=== PATIENT | female | born 1995 | race Caucasian/White ===

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

== ENCOUNTER 2023-02-05 03:06 | Emergency (ER) | payer MEDICAID, OTHER ==
[~2023-02-05] VITALS: Ht 165.1 cm; Wt 61.0 kg
[~2023-02-05 03:06] MED LIST changes: -MAGN400T6 PO; +MGX400T PO; -OXYC-465 PO; +OXYC-556 PO; +PROM12.511 PO; -PROM12.59 PO; -TRAM50TA2 PO; +TRM50T PO
[2023-02-05 03:17] VITALS: BP 125/98
--- NOTE | 2023-02-05 03:21 | ED General ---
General Chief Complaint: Chest Pain Stated Complaint: PT FEELS FAINT,DONATED BLOOD YESTERDAY Source of Information: Patient, Family Exam Limitations: No Limitations History of Present Illness Date Seen by Provider: Feb 05, 2023 Time Seen by Provider: 03:12 Initial Comments But -rkdy-fyw female presents emerged department today for palpitations, tingling around her mouth in her hands and tremor. Symptoms started about 30 minutes prior to arrival. She does have a history of anxiety but denies history of panic attacks. She started to get worried because she thought she was having a "plasma reaction." She donated plasma the other day and thought she was having some kind of reaction to this. She denies any fevers or chills. No chest pain. No shortness of breath. Does feel like she cannot catch a deep breath. No abdominal pain or change in bowel or bladder habits. No chance of . All other systems reviewed and negative except documented per HPI. Voice recognition software was used to help create this chart Allergies and Home Medications Allergies Coded Allergies: petrolatum,white (Unverified Allergy, Mild, Rash, 03/19/16) Patient Home Medication List Home Medication List Reviewed: Yes Cefdinir (Cefdinir) 300 Mg Capsule, 300 MG PO BID Prescribed by: CHRIS REESE on 12/24/16 1635 Diclofenac Sodium (Diclofenac Sodium) 50 Mg Tablet.dr, 50 MG PO Q6H PRN for PAIN Prescribed by: CHRIS REESE on 12/24/16 1635 Ondansetron (Ondansetron Odt) 8 Mg Tab.rapdis, 8 MG PO Q6H PRN for NAUSEA Prescribed by: KRISTEN QUINTANA on 10/31/16 231 Promethazine HCl (Promethazine HCl) 12.5 Mg Tablet, 12.5 MG PO Q6H PRN for NAUSEA/VOMITING Prescribed by: SUSAN COTTO on 11/02/16 225 Tramadol HCl (Tramadol HCl) 50 Mg Tablet, 50 MG PO Q6H PRN for PAIN Prescribed by: KRISTEN QUINTANA on 10/31/16 231 Review of Systems Review of Systems Constitutional: see HPI Past Ufkmwte-Snxmac-Eedfhx Hx Patient Social History Tobacco Use?: No Use of E-Cig and/or Vaping dev: No Substance use?: No Alcohol Use?: No Immunizations Up To Date Tetanus Booster (TDap): Less than 5yrs Seasonal Allergies Seasonal Allergies: Yes Past Medical History Surgeries: Yes (WISDOM TEETH, L ANKLE) Adenoidectomy, Orthopedic, Tonsillectomy Respiratory: Yes (CHILDHOOD ASTHMA) Asthma Cardiac: No Neurological: No Reproductive Disorders: No Sexually Transmitted Disease: No HIV/AIDS: No Bladder Infection Gastrointestinal: No Musculoskeletal: No Endocrine: No Cancer: No Psychosocial: Yes Anxiety, Depression Integumentary: No Blood Disorders: No Adverse Reaction/Blood Tranf: No Family Medical History Adopted Diabetes mellitus (Runs in biological family) Drug abuse (Biological mother) FH: breast cancer (Female side of family. Patient is adopted) FH: mental illness (Biological mother) FHx: heart disease (biological grandmother) No Pertinent Family Hx Physical Exam Vital Signs Capillary Refill : Height, Weight, BMI Height: 5'6.00" Weight: 125lbs. 10.0oz. [id number]; 14.06 BMI Method:Stated General Appearance: No Apparent Distress, WD/WN, Other (tremor b/l UE/LE) Eyes: Bilateral Eye Normal Inspection, Bilateral Eye PERRL, Bilateral Eye EOMI HEENT: PERRL/EOMI, TMs Normal, Normal ENT Inspection, Pharynx Normal Neck: Full Range of Motion, Normal Inspection, Non Tender, Supple Respiratory: Chest Non Tender, Lungs Clear, Normal Breath Sounds, No Accessory Muscle Use, No Respiratory Distress Cardiovascular: Regular Rate, Rhythm, No Murmur, Normal Peripheral Pulses Gastrointestinal: Normal Bowel Sounds, Non Tender, Soft Extremity: Normal Capillary Refill, Normal Inspection, Normal Range of Motion, Non Tender, No Calf Tenderness Neurologic/Psychiatric: Alert, Oriented x3, No Motor/Sensory Deficits Skin: Normal Color, Warm/Dry Procedures/Interventions Suture Size: 5-0 Progress/Results/Core Measures Suspected Sepsis SIRS Temperature: Pulse: Respiratory Rate: Blood Pressure / Mean: Results/Orders My Orders Orders - CASSANDRA DEVLIN DO Ekg Tracing (02/05/23 03:19) Vital Signs/I&O Capillary Refill : ECG Comment Sinus rhythm at 91 bpm. Normal intervals. Normal axis. No ST or T wave abnormalities. No ectopy. No STEMI. Departure Communication (Admissions) Patient is hemodynamically stable with no red flag symptoms. She is hyperventilating on exam and has perioral tingling bilateral hand tingling in his upper and lower extremity tremors. She is also experiencing palpitations. She has some mild tachycardia. No stigmata of pulmonary embolus and negative PERC criteria. No evidence for ACS. EKG is nonischemic with sinus rhythm. Evidence for dysrhythmia. She is discharged home with supportive care and hydroxyzine as needed. She does have Klonopin at home that she can take as well. Impression Primary Impression: Anxiety Departure-Patient Inst. Referrals: GEORGIA BRUCE DO (PCP) Primary Care Physician BENTLEY TORRES (Family) Primary Care Physician Patient Instructions: Anxiety, Adult ED Add. Discharge Instructions: Use hydroxyzine as needed for anxiety. Resume home medications as needed. Follow-up with your primary doctor for any nonemergent needs. Return to the emergency department for any severe concerns. All discharge instructions reviewed with patient and/or family. Voiced understanding. Scripts Hydroxyzine HCl (Hydroxyzine HCl) 50 Mg Tablet 50 MG PO TID for an for 5 Days, #15 TAB Prov: CASSANDRA DEVLIN DO 02/05/23 CASSANDRA DEVLIN DO Feb 05, 2023 03:20
[2023-02-05] MEDS ORDERED: HYDR50TA76 PO (03:23)
[2023-02-05] MEDS ORDERED: hydrOXYzine (VISTARIL/ATARAX) 25 MG capsule/tablet PO ONE (03:30)
== END 2023-02-05 03:32 | disposition home or self-care (01) ==
LOC: EDUNIT# 03:06 → ER 03:10
DX: F41.9 Anxiety disorder, unspecified (principal); I49.9 Cardiac arrhythmia, unspecified
CPT/HCPCS: 93005

== ENCOUNTER 2023-03-19 00:40 | Emergency (ER) | payer OTHER ==
[~2023-03-19] VITALS: Ht 165.1 cm; Wt 58.9 kg
[~2023-03-19 00:40] MED LIST changes: +HYDR50TA76 PO
[2023-03-19 00:43] VITALS: BP 128/83
--- NOTE | 2023-03-19 00:43 | ED General ---
General Stated Complaint: ALLERGIC RXN History of Present Illness Date Seen by Provider: Mar 19, 2023 Time Seen by Provider: 00:43 Initial Comments 27-year-old female in to be evaluated for allergic reaction. Patient reports that a couple hours ago she had some new eyelashes put on. That she has a history of panic attacks and her heart started racing and she been out of being tight in her chest. She used her nebulizers with no relief. She did take an hydroxyzine with some minimal relief. She does not have any rash, swelling around her eyelids. Allergies and Home Medications Allergies Coded Allergies: garrick,white (Unverified Allergy, Mild, Rash, 03/19/16) Patient Home Medication List Home Medication List Reviewed: Yes Cefdinir (Cefdinir) 300 Mg Capsule, 300 MG PO BID Prescribed by: CHRIS REESE on 12/24/16 1635 Diclofenac Sodium (Diclofenac Sodium) 50 Mg Tablet.dr, 50 MG PO Q6H PRN for PAIN Prescribed by: CHRIS REESE on 12/24/16 1635 Hydroxyzine HCl (Hydroxyzine HCl) 50 Mg Tablet, 50 MG PO TID Prescribed by: CASSANDRA DEVLIN MD on 02/05/23 0323 Ondansetron (Ondansetron Odt) 8 Mg Tab.rapdis, 8 MG PO Q6H PRN for NAUSEA Prescribed by: KRISTEN QUINTANA on 10/31/16 231 Promethazine HCl (Promethazine HCl) 12.5 Mg Tablet, 12.5 MG PO Q6H PRN for NAUSEA/VOMITING Prescribed by: SUSAN COTTO on 11/02/16 2250 Tramadol HCl (Tramadol HCl) 50 Mg Tablet, 50 MG PO Q6H PRN for PAIN Prescribed by: KRISTEN QUINTANA on 10/31/16 231 Review of Systems Review of Systems Constitutional: see HPI EENTM: see HPI Respiratory: see HPI Cardiovascular: see HPI Gastrointestinal: no symptoms reported Genitourinary: no symptoms reported Musculoskeletal: no symptoms reported Skin: no symptoms reported Psychiatric/Neurological: No Symptoms Reported Hematologic/Lymphatic: No Symptoms Reported Past Nhiaelu-Feltgj-Twueak Hx Immunizations Up To Date Tetanus Booster (TDap): Less than 5yrs Seasonal Allergies Seasonal Allergies: Yes Past Medical History Surgeries: Yes (WISDOM TEETH, L ANKLE) Adenoidectomy, Orthopedic, Tonsillectomy Respiratory: Yes (CHILDHOOD ASTHMA) Asthma Cardiac: No Neurological: No Reproductive Disorders: No Sexually Transmitted Disease: No HIV/AIDS: No Bladder Infection Gastrointestinal: No Musculoskeletal: No Endocrine: No Cancer: No Psychosocial: Yes Anxiety, Depression Integumentary: No Blood Disorders: No Adverse Reaction/Blood Tranf: No Family Medical History Adopted Diabetes mellitus (Runs in biological family) Drug abuse (Biological mother) FH: breast cancer (Female side of family. Patient is adopted) FH: mental illness (Biological mother) FHx: heart disease (biological grandmother) No Pertinent Family Hx Physical Exam Vital Signs Capillary Refill : Height, Weight, BMI Height: 5'6.00" Weight: 125lbs. 10.0oz. 56.744852po; 22.00 BMI Method:Stated General Appearance: No Apparent Distress, WD/WN Respiratory: Lungs Clear, Normal Breath Sounds Cardiovascular: Regular Rate, Rhythm, Normal Peripheral Pulses Gastrointestinal: Non Tender, Soft Extremity: Normal Capillary Refill, Normal Inspection, Normal Range of Motion Neurologic/Psychiatric: Alert, No Motor/Sensory Deficits, Other (anxious ) Skin: Normal Color, Warm/Dry Procedures/Interventions Suture Size: 5-0 Progress/Results/Core Measures Suspected Sepsis SIRS Temperature: Pulse: Respiratory Rate: Laboratory Tests 03/19/23 01:14: White Blood Count 8.2 Blood Pressure / Mean: Laboratory Tests 03/19/23 01:14: Creatinine 0.78, Platelet Count 214, Total Bilirubin 0.5 Results/Orders Lab Results Laboratory Tests Test 03/19/23 01:14 Range/Units White Blood Count 8.2 4.3-11.0 10^3/uL Red Blood Count 4.38 3.80-5.11 10^6/uL Hemoglobin 13.2 11.5-16.0 g/dL Hematocrit 39 35-52 % Mean Corpuscular Volume 88 80-99 fL Mean Corpuscular Hemoglobin 30 25-34 pg Mean Corpuscular Hemoglobin Concent 34 32-36 g/dL Red Cell Distribution Width 12.2 10.0-14.5 % Platelet Count 214 130-400 10^3/uL Mean Platelet Volume 10.1 9.0-12.2 fL Immature Granulocyte % (Auto) 0 % Neutrophils (%) (Auto) 63 42-75 % Lymphocytes (%) (Auto) 26 12-44 % Monocytes (%) (Auto) 8 0-12 % Eosinophils (%) (Auto) 2 0-10 % Basophils (%) (Auto) 1 0-10 % Neutrophils # (Auto) 5.2 1.8-7.8 10^3/uL Lymphocytes # (Auto) 2.2 1.0-4.0 10^3/uL Monocytes # (Auto) 0.7 0.0-1.0 10^3/uL Eosinophils # (Auto) 0.2 0.0-0.3 10^3/uL Basophils # (Auto) 0.0 0.0-0.1 10^3/uL Immature Granulocyte # (Auto) 0.0 0.0-0.1 10^3/uL Sodium Level 142 135-145 MMOL/L Potassium Level 3.2 L 3.6-5.0 MMOL/L Chloride Level 107 98-107 MMOL/L Carbon Dioxide Level 26 21-32 MMOL/L Anion Gap 9 5-14 MMOL/L Blood Urea Nitrogen 8 7-18 MG/DL Creatinine 0.78 0.60-1.30 MG/DL Estimat Glomerular Filtration Rate 108 BUN/Creatinine Ratio 10 Glucose Level 104 70-105 MG/DL Calcium Level 10.0 8.5-10.1 MG/DL Corrected Calcium 8.5-10.1 MG/DL Total Bilirubin 0.5 0.1-1.0 MG/DL Aspartate Amino Transf (AST/SGOT) 17 5-34 U/L Alanine Aminotransferase (ALT/SGPT) 11 0-55 U/L Alkaline Phosphatase 63 40-136 U/L Troponin I < 0.028 <0.028 NG/ML C-Reactive Protein High Sensitivity 0.04 0.00-0.50 MG/DL Total Protein 7.6 6.4-8.2 GM/DL Albumin 4.6 H 3.2-4.5 GM/DL My Orders Orders - JEONG,STEVE L DO Diphenhydramine Injection (Benadryl Inje (03/19/23 00:47) Cbc With Automated Diff (03/19/23 01:03) Comprehensive Metabolic Panel (03/19/23 01:03) Hs C Reactive Protein (03/19/23 01:03) Troponin I Katie (03/19/23 01:03) Ondansetron Injection (Zofran Injectio (03/19/23 01:15) Ns Iv 1000 Ml (Sodium Chloride 0.9%) (03/19/23 01:03) Ekg Tracing (03/19/23 01:03) Monitor-Rhythm Ecg Trace Only (03/19/23 01:03) Chest 1 View, Ap/Pa Only (03/19/23 01:05) Medications Given in ED Current Medications Medications Dose Ordered Sig/Justo Route Start Time Stop Time Status Last Admin Dose Admin Ondansetron HCl 4 mg ONCE ONCE IVP 03/19/23 01:15 03/19/23 01:16 DC 03/19/23 01:12 4 MG Vital Signs/I&O Capillary Refill : Progress Note : Progress Note Diagnostic studies were ordered reviewed and interpreted by me. Patient labs show no significant acute concerning findings. Chest x-ray was reviewed which shows no acute findings. Final interpretation will be per radiology report. Patient is EKG showed no concerning changes. Patient much better following the Benadryl and is now resting comfortably and going to sleep. I suspect this likely much more anxiety than an actual allergic skin since there was no rash, swelling or or noticeable reaction near her eyelids. Patient was stable and discharged home patient should return to the ER as needed ECG Initial ECG Impression Date: Mar 19, 2023 Initial ECG Impression Time: 01:11 Initial ECG Rate: 87 Initial ECG Rhythm: Normal Sinus Initial ECG Impression: Nonspecific Changes Comment no acute st changes or elevation Departure Impression Primary Impression: Generalized anxiety disorder with panic attacks Disposition: 01 HOME, SELF-CARE Condition: Stable Departure-Patient Inst. Referrals: NO,LOCAL PHYSICIAN (PCP/Family) Primary Care Physician Patient Instructions: Generalized Anxiety Disorder (DC), Panic Attack ED Add. Discharge Instructions: Return to ER with any concerns. Follow-up with your primary care provider for help as needed or if your symptoms become more recurrent for further management options. STEVE JEONG DO Mar 19, 2023 00:43
[2023-03-19] MEDS ORDERED: diphenhydrAMINE INJ 50 MG/ML VIAL IM STA (00:47)
[2023-03-19] MEDS ORDERED: NS IV 1000 ML 1,000 ML IV STA (01:03)
[2023-03-19] MEDS ORDERED: ONDANSETRON 4 MG/2 ML (SDV) Z0FRAN IVP ONE (01:15)
[2023-03-19 01:21] LABS: BASOPHILS % (AUTO) 1 % (0-10); EOSINOPHILS # (AUTO) 0.2 10^3/uL (0.0-0.3); EOSINOPHILS % (AUTO) 2 % (0-10); HEMATOCRIT 39 % (35-52); HEMOGLOBIN 13.2 g/dL (11.5-16.0); LYMPHOCYTES # (AUTO) 2.2 10^3/uL (1.0-4.0); LYMPHOCYTES % (AUTO) 26 % (12-44); MEAN CORPUSCULAR HEMOGLOBIN 30 pg (25-34); MEAN CORPUSCULAR HGB CONC 34 g/dL (32-36); MEAN CORPUSCULAR VOLUME 88 fL (80-99); MEAN PLATELET VOLUME 10.1 fL (9.0-12.2); MONOCYTES # (AUTO) 0.7 10^3/uL (0.0-1.0); MONOCYTES % (AUTO) 8 % (0-12); NEUTROPHILS # (AUTO) 5.2 10^3/uL (1.8-7.8); NEUTROPHILS % (AUTO) 63 % (42-75); PLATELET COUNT 214 10^3/uL (130-400); WHITE BLOOD COUNT 8.2 10^3/uL (4.3-11.0)
[2023-03-19 01:39] LABS: ALBUMIN 4.6 GM/DL (3.2-4.5); CHLORIDE 107 MMOL/L (98-107); POTASSIUM 3.2 MMOL/L (3.6-5.0); SODIUM 142 MMOL/L (135-145)
[2023-03-19 01:41] LABS: GLUCOSE 104 MG/DL (70-105)
[2023-03-19 01:42] LABS: TOTAL PROTEIN 7.6 GM/DL (6.4-8.2)
[2023-03-19 01:43] LABS: BILIRUBIN,TOTAL 0.5 MG/DL (0.1-1.0); CARBON DIOXIDE 26 MMOL/L (21-32)
[2023-03-19 01:45] LABS: ALKALINE PHOSPHATASE 63 U/L (40-136); CREATININE SERUM 0.78 MG/DL (0.60-1.30); GFR ESTIMATED 108
[2023-03-19 01:46] LABS: BUN/CREATININE RATIO 10
[2023-03-19 01:48] LABS: ALANINE AMINOTRANSFERASE 11 U/L (0-55)
--- NOTE | 2023-03-19 07:38 | Diagnostic Imaging Report ---
INDICATION: Chest pain COMPARISON: None available TECHNIQUE: Single radiograph of the chest dated 03/19/2023. FINDINGS: The cardiac silhouette is within normal limits in size. No significant pulmonary vascular congestion. The lungs are clear. No pleural effusion. No pneumothorax. No acute osseous abnormality. IMPRESSION: No acute cardiopulmonary abnormality. Dictated by: Dictated on workstation # [id number]
== END 2023-03-19 02:13 | disposition home or self-care (01) ==
LOC: EDUNIT# 00:40 → ER 00:42
DX: F41.1 Generalized anxiety disorder (principal); F41.0 Panic disorder [episodic paroxysmal anxiety]; Z28.310 Unvaccinated for COVID-19
CPT/HCPCS: 36415; 71045; 80053; 84484; 85025; 86141; 93005; 93041

== ENCOUNTER 2023-04-19 17:27 | Emergency (ER) | payer OTHER ==
[~2023-04-19] VITALS: Ht 165.1 cm; Wt 58.0 kg
--- NOTE | 2023-04-19 18:11 | ED Cough/URI ---
General Chief Complaint: COVID19 Suspect/Confirmed Stated Complaint: FEVER CHILLS, FATIGUE, CONGESTION Nursing Triage Note: PT AMB TO RM 10 WITH CC OF CHILLS, BODY ACHES, SORE THROAT AND CHEST DISCOMFORT. PT STATES THAT SHE WAS EXPOSED TO COVID AT WORK 4 DAYS AGO. Source: patient Exam Limitations: no limitations History of Present Illness Date Seen by Provider: Apr 19, 2023 Time Seen by Provider: 18:07 Initial Comments Patient is a 27-year-old female who presents to the ED for body aches, chills, weakness fatigue sore throat and chest discomfort. Symptoms started 3 to 4 days ago with nasal congestion. Symptoms became worse last night. She works at [employer]. Exposure to COVID. Similar coworkers with similar symptoms. She reports some pain in the chest but denies of any shortness of breath or cough. She reports diffuse body pains. Feels anxious. Denies any nausea vomiting or diarrhea. Patient has been taken Tylenol without much improvement. She felt nauseous at home and did take Zofran. Denies of any abdominal pain, dysuria, hematuria, increasing frequency, vaginal bleeding or vaginal discharge. Allergies and Home Medications Allergies Coded Allergies: petrolatum,white (Unverified Allergy, Mild, Rash, 03/19/16) Patient Home Medication List Home Medication List Reviewed: Yes Cefdinir (Cefdinir) 300 Mg Capsule, 300 MG PO BID Prescribed by: CHRIS REESE on 12/24/16 1635 Diclofenac Sodium (Diclofenac Sodium) 50 Mg Tablet.dr, 50 MG PO Q6H PRN for PAIN Prescribed by: CHRIS REESE on 12/24/16 1635 Hydroxyzine HCl (Hydroxyzine HCl) 50 Mg Tablet, 50 MG PO TID Prescribed by: CASSANDRA DEVLIN MD on 02/05/23 0323 Ondansetron (Ondansetron Odt) 8 Mg Tab.rapdis, 8 MG PO Q6H PRN for NAUSEA Prescribed by: KRISTEN QUINTANA on 10/31/16 2317 Promethazine HCl (Promethazine HCl) 12.5 Mg Tablet, 12.5 MG PO Q6H PRN for NAUSEA/VOMITING Prescribed by: SUSAN COTTO on 11/02/16 2250 Tramadol HCl (Tramadol HCl) 50 Mg Tablet, 50 MG PO Q6H PRN for PAIN Prescribed by: KRISTEN QUINTANA on 10/31/16 6364 Review of Systems Review of Systems Constitutional: chills; No diaphoresis; malaise, weakness EENTM: No ear pain, No blurred vision, No double vision Respiratory: No cough, No dyspnea on exertion Gastrointestinal: No abdominal pain, No diarrhea; nausea; No vomiting Genitourinary: No decreased output, No discharge Musculoskeletal: No back pain, No joint pain Skin: No change in color, No change in hair/nails Psychiatric/Neurological: Denies Headache, Denies Numbness All Other Systems Reviewed Negative Unless Noted: Yes Past Wvrzawc-Ygmrxc-Flkhmv Hx Patient Social History Tobacco Use?: Yes Use of E-Cig and/or Vaping dev: Yes E-Cig or Vaping type used: Nicotine Substance use?: No Alcohol Use?: No Immunizations Up To Date Tetanus Booster (TDap): Less than 5yrs Seasonal Allergies Seasonal Allergies: Yes Past Medical History Surgeries: Yes (WISDOM TEETH, L ANKLE) Adenoidectomy, Orthopedic, Tonsillectomy Respiratory: Yes (CHILDHOOD ASTHMA) Asthma Cardiac: No Neurological: No Reproductive Disorders: No Sexually Transmitted Disease: No HIV/AIDS: No Bladder Infection Gastrointestinal: No Musculoskeletal: No Endocrine: No Cancer: No Psychosocial: Yes Anxiety, Depression Integumentary: No Blood Disorders: No Adverse Reaction/Blood Tranf: No Family Medical History Adopted Diabetes mellitus (Runs in biological family) Drug abuse (Biological mother) FH: breast cancer (Female side of family. Patient is adopted) FH: mental illness (Biological mother) FHx: heart disease (biological grandmother) No Pertinent Family Hx Physical Exam Vital Signs - First Documented 04/19/23 17:40 Temp 36.9 Pulse 83 B/P (MAP) 114/76 (89) Pulse Ox 100 O2 Delivery Room Air Capillary Refill : Height: 5'6.00" Weight: 125lbs. 10.0oz. 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 nml as tested, no motor/sensory deficits, alert, normal mood/affect, oriented x 3 Skin: normal color, warm/dry Procedures/Interventions Suture Size: 5-0 Progress/Results/Core Measures Suspected Sepsis SIRS Temperature: Pulse: 83 Respiratory Rate: Blood Pressure 114 /76 Mean: 89 Results/Orders Lab Results Laboratory Tests Test 04/19/23 17:43 Range/Units Influenza Type A (RT-PCR) Not Detected Not Detecte Influenza Type B (RT-PCR) Not Detected Not Detecte SARS-CoV-2 RNA (RT-PCR) Not Detected Not Detecte My Orders Orders - RUMA DELGADO Covid 19 Inhouse Test (04/19/23 17:31) Influenza A And B By Pcr (04/19/23 17:31) Vital Signs/I&O 04/19/23 17:40 Temp 36.9 Pulse 83 B/P (MAP) 114/76 (89) Pulse Ox 100 O2 Delivery Room Air Capillary Refill : Blood Pressure Mean: 89 Departure Communication (PCP) Reviewed previous ER visits, H&P, lab testing. History of anxiety. Differential diagnosis viral syndrome, anxiety, pneumonia, sinusitis. Patient vital signs stable. She is not tachycardic hypoxic. Flulike symptoms over the past 4 days started nasal congestion. Chest discomfort, body pains chills nasal congestion mild sore throat nausea. No vomiting or diarrhea. No current chest pain, cough or shortness of breath. No known cardiac history. Clinically does not appear cardiac. Appears to be more URI symptoms. COVID influenza was ord ered which were negative. She refused anything for pain. She does appear anxious. Discussed conservative measures at this time. Tylenol ibuprofen. Recommend staying hydrated. She does work night shifts and provided work note for a few days. If any worsening symptoms return back to ED for further evaluation. No urinary symptoms suggesting urinary. Oropharynx without erythem a, swelling, exudate. I TMs clear. Impression Primary Impression: URI (upper respiratory infection) Disposition: 01 HOME, SELF-CARE Condition: Stable Departure-Patient Inst. Decision time for Depature: 18:26 Referrals: [facility] [place] NO,LOCAL PHYSICIAN (PCP) Primary Care Physician Patient Instructions: Viral Syndrome (DC) Add. Discharge Instructions: Tylenol or ibuprofen at home for body aches chills, fever. Recommend staying hydrated adequate sleep. If any worsening symptoms return back to ED.. All discharge instructions reviewed with patient and/or family. Voiced understanding. Work/School Note: Work Release Form Date Seen in the Emergency Department: Apr 19, 2023 Return to Work: Apr 21, 2023 RUMA DELGADO Apr 19, 2023 18:11
[2023-04-19 18:28] VITALS: BP 114/76
== END 2023-04-19 18:30 | disposition home or self-care (01) ==
LOC: EDUNIT# 17:27 → ER 17:30
DX: J06.9 Acute upper respiratory infection, unspecified (principal); F17.290 Nicotine dependence, other tobacco product, uncomplicated; Z20.822 Contact with and (suspected) exposure to COVID-19
CPT/HCPCS: 87636; 99283

== ENCOUNTER 2023-04-19 20:41 | Emergency (ER) | payer OTHER ==
[~2023-04-19] VITALS: Ht 165.1 cm; Wt 58.0 kg
[2023-04-19 20:50] VITALS: BP 128/90
--- NOTE | 2023-04-19 20:59 | ED Cardiac General ---
History of Present Illness General Stated Complaint: CHEST PAIN LT SHOULDER PAIN Source: patient Exam Limitations: no limitations History of Present Illness Date Seen by Provider: Apr 19, 2023 Time Seen by Provider: 20:50 Initial Comments 27-year-old female presents to the emergency department today for sharp stabbing chest pain in her left anterior chest wall. She states they are intermittently in her left parasternal region or left mid clavicular line region as she is pointing. They are fleeting, sharp stabbing pains. The been present for about a month and she states she is overall felt "like shit" since that time. She was started on a new anxiety medicine at that time. She was seen in the emergency department this morning for chills headache sore throat and cough as well as some left shoulder pain. She was tested for COVID. Notably record review shows old provider at that time that her symptoms that started today. Her COVID test was negative. All other systems reviewed and negative except documented per HPI. Voice recognition software was used to help create this chart Allergies and Home Medications Allergies Coded Allergies: deanna mccauley (Unverified Allergy, Mild, Rash, 03/19/16) Patient Home Medication List Home Medication List Reviewed: Yes Cefdinir (Cefdinir) 300 Mg Capsule, 300 MG PO BID Prescribed by: CHRIS REESE on 12/24/16 1635 Diclofenac Sodium (Diclofenac Sodium) 50 Mg Tablet.dr, 50 MG PO Q6H PRN for PAIN Prescribed by: CHRIS REESE on 12/24/16 1635 Hydroxyzine HCl (Hydroxyzine HCl) 50 Mg Tablet, 50 MG PO TID Prescribed by: CASSANDRA DEVLIN MD on 02/05/23 0323 Ondansetron (Ondansetron Odt) 8 Mg Tab.rapdis, 8 MG PO Q6H PRN for NAUSEA Prescribed by: KRISTEN QUINTANA on 10/31/16 231 Promethazine HCl (Promethazine HCl) 12.5 Mg Tablet, 12.5 MG PO Q6H PRN for NAUSEA/VOMITING Prescribed by: SUSAN COTTO on 11/02/16 225 Tramadol HCl (Tramadol HCl) 50 Mg Tablet, 50 MG PO Q6H PRN for PAIN Prescribed by: KRISTEN QUINTANA on 10/31/162316 Review of Systems Review of Systems Constitutional: see HPI Past Anafarp-Afylgz-Virshg Hx Patient Social History Tobacco Use?: No Use of E-Cig and/or Vaping dev: No Substance use?: No Alcohol Use?: No Immunizations Up To Date Tetanus Booster (TDap): Less than 5yrs Seasonal Allergies Seasonal Allergies: Yes Past Medical History Surgeries: Yes (WISDOM TEETH, L ANKLE) Adenoidectomy, Orthopedic, Tonsillectomy Respiratory: Yes (CHILDHOOD ASTHMA) Asthma Cardiac: No Neurological: No Reproductive Disorders: No Sexually Transmitted Disease: No HIV/AIDS: No Bladder Infection Gastrointestinal: No Musculoskeletal: No Endocrine: No Cancer: No Psychosocial: Yes Anxiety, Depression Integumentary: No Blood Disorders: No Adverse Reaction/Blood Tranf: No Family Medical History Adopted Diabetes mellitus (Runs in biological family) Drug abuse (Biological mother) FH: breast cancer (Female side of family. Patient is adopted) FH: mental illness (Biological mother) FHx: heart disease (biological grandmother) No Pertinent Family Hx Physical Exam Vital Signs Vital Signs - First Documented 04/19/23 20:50 Temp 36.5 Pulse 111 Resp 16 B/P (MAP) 128/90 (103) Capillary Refill : Height, Weight, BMI Height: 5'6.00" Weight: 125lbs. 10.0oz. 56.428933nd; 21.00 BMI Method:Stated General Appearance: No Apparent Distress, WD/WN, Anxious HEENT: PERRL/EOMI, Normal ENT Inspection, Pharynx Normal Neck: Normal Inspection, Non Tender, Supple Respiratory: Chest Non Tender, Lungs Clear, Normal Breath Sounds, No Accessory Muscle Use, No Respiratory Distress Cardiovascular: Regular Rate, Rhythm, No Murmur, Normal Peripheral Pulses Gastrointestinal: Normal Bowel Sounds, No Organomegaly, Non Tender, Soft Extremity: Normal Capillary Refill, Normal Inspection, Non Tender Neurologic/Psychiatric: Alert, Oriented x3 Skin: Normal Color, Warm/Dry Procedures/Interventions Suture Size: 5-0 Progress/Results/Core Measures Results/Orders My Orders Orders - CLAUSCASSANDRA BASS DO Chest 1 View, Ap/Pa Only (04/19/23 20:56) Ekg Tracing (04/19/23 20:56) Vital Signs/I&O 04/19/23 20:50 Temp 36.5 Pulse 111 Resp 16 B/P (MAP) 128/90 (103) Comment Sinus rhythm, rate 93 bpm. Normal intervals. Normal axis. No ST or T wave abnormalities. No ectopy. No STEMI. Departure Communication (Admissions) Patient is hemodynamically stable. She does seem quite anxious about her health overall. She has initial tachycardia, improved when myself and the nurse leave the room with heart rate dropping down to the mid 80s. 105 on the right in the room. Blood pressures are stable. Her lungs are clear. Chest x-ray is negative on my independent review. No acute cardiopulmonary or bony abnormality. EKG is nonischemic, sinus rhythm, independent review. She tested negative for COVID earlier today. She be discharged home in stable condition with supportive care. Impression Primary Impression: Anxiety Disposition: HOME, SELF-CARE Condition: Stable Departure-Patient Inst. Referrals: NO,LOCAL PHYSICIAN (PCP/Family) Primary Care Physician Patient Instructions: Chest Pain That Is Not Caused by the Heart (DC) Add. Discharge Instructions: As discussed no emergent medical conditions are identified for your symptoms today. There is no indication that this is coming from your heart or your lungs at this time. Your vital signs are reassuring. I recommend you follow-up with your primary doctor for further evaluation and treatment recommendations should your symptoms persist. Follow-up in the emergency department for any severe concerns. CASSANDRA DEVLIN DO Apr 19, 2023 20:59
--- NOTE | 2023-04-19 21:18 | Diagnostic Imaging Report ---
INDICATION: Intermittent R chest pain. COMPARISON: 03/19/2023. FINDINGS: Single frontal view of the chest demonstrates normal heart size and pulmonary vascularity. The lungs are well aerated and clear. No large pleural effusion or pneumothorax is seen. The visualized osseous structures show no acute abnormality. IMPRESSION: No acute cardiopulmonary process. Dictated by: Dictated on workstation # [id number]
== END 2023-04-19 21:33 | disposition home or self-care (01) ==
LOC: EDUNIT# 20:41 → ER 20:44
DX: F41.9 Anxiety disorder, unspecified (principal)
CPT/HCPCS: 71045

== ENCOUNTER 2023-05-22 21:34 | Emergency (ER) | payer OTHER ==
[~2023-05-22] VITALS: Ht 165.6 cm; Wt 58.8 kg
[2023-05-22] MEDS ORDERED: AMOXICILLIN/Clavulanate 875 MG TABLET PO STA (21:53)
[2023-05-22] MEDS ORDERED: AMOX1TAB12 PO (21:55)
--- NOTE | 2023-05-22 21:56 | ED EENT ---
History of Present Illness General Chief Complaint: Dental Problems/Pain Stated Complaint: LT SIDE MOUTH PAIN AND SWOLLEN, HEADACHE, FATIGUE Nursing Triage Note: Pt presents with c/o swelling in throat and jaw. She reports she noticed swelling x2 weeks ago, states she has a few cavities, she reports pain and swelling in jaw has worsened over the past 2 days. She states she feels fatigued, but has not been able to sleep due to pain. Source: patient Exam Limitations: no limitations (RUMA DELGADO) History of Present Illness Date Seen by Provider: May 22, 2023 Time Seen by Provider: 21:57 Initial Comments Patient is a 27-year-old female presents ED with bilateral lower dental pain and jaw pain for the past 2 weeks. She noted her jaws to be slightly puffier. Pain with eating. Has been taken Tylenol ibuprofen without much improvement pain worsening pain over the past 2 days. She states she does not feel well. She does have a known history of cavities to her lower molars. She has not been able to follow-up with a dentist. She reports a mild sore throat but denies of any difficulty breathing, neck swelling or redness, shortness of breath, chest pain, vomiting or diarrhea. She does report a headache. She is concern for dental infection. She has been using cool compresses without much improvement. (RUMA DELGADO) Allergies and Home Medications Allergies Coded Allergies: petrolatum,white (Unverified Allergy, Mild, Rash, 03/19/16) Patient Home Medication List Home Medication List Reviewed: Yes (RUMA DELGADO) Amoxicillin/Potassium Clav (Amox Tr-K Clv 875-125 mg Tab) 875 Mg-125 Mg Tablet, 1 EACH PO BID Prescribed by: CELINE SPENCER on 05/22/23 2155 Cefdinir (Cefdinir) 300 Mg Capsule, 300 MG PO BID Prescribed by: CHRIS REESE on 12/24/16 1635 Diclofenac Sodium (Diclofenac Sodium) 50 Mg Tablet.dr, 50 MG PO Q6H PRN for PAIN Prescribed by: CHRIS REESE on 12/24/16 1635 Hydroxyzine HCl (Hydroxyzine HCl) 50 Mg Tablet, 50 MG PO TID Prescribed by: CASSANDRA DEVLIN MD on 02/05/23 0323 Ondansetron (Ondansetron Odt) 8 Mg Tab.rapdis, 8 MG PO Q6H PRN for NAUSEA Prescribed by: KRISTEN QUINTANA on 10/31/162316 Promethazine HCl (Promethazine HCl) 12.5 Mg Tablet, 12.5 MG PO Q6H PRN for NAUSEA/VOMITING Prescribed by: SUSAN COTTO on 11/02/162249 Tramadol HCl (Tramadol HCl) 50 Mg Tablet, 50 MG PO Q6H PRN for PAIN Prescribed by: KRISTEN QUINTANA on 10/31/162316 Review of Systems Review of Systems Constitutional: No chills, No diaphoresis, No malaise, No weakness Eyes: Denies Blurred Vision, Denies Drainage, Denies Decreased Acuity Ears: Denies Dizziness, Denies Pain Nose: denies clots, denies congestion, denies epistaxis, denies pain, denies bloody discharge Mouth: denies clots, denies loose teeth; pain Throat: denies pain, denies discharge, denies neck stiffness, denies hoarse Respiratory: No cough, No dyspnea on exertion Cardiovascular: No chest pain, No edema Gastrointestinal: No abdominal pain, No diarrhea, No melena, No nausea, No vomiting Musculoskeletal: No back pain, No joint pain Skin: No change in color, No change in hair/nails (RUMA DELGADO) All Other Systems Reviewed Negative Unless Noted: Yes (RUMA DELGADO) Past Uhycuar-Jwhkik-Vjnuns Hx Immunizations Up To Date Tetanus Booster (TDap): Less than 5yrs Influenza Vaccine Up-to-Date: No; Not Current (RUMA DELGADO) Seasonal Allergies Seasonal Allergies: Yes (RUMA DELGADO) Past Medical History Surgeries: Yes (WISDOM TEETH, L ANKLE) Adenoidectomy, Orthopedic, Tonsillectomy Respiratory: Yes (CHILDHOOD ASTHMA) Asthma Cardiac: No Neurological: No Reproductive Disorders: No Sexually Transmitted Disease: No HIV/AIDS: No Bladder Infection Gastrointestinal: No Musculoskeletal: No Endocrine: No Cancer: No Psychosocial: Yes Anxiety, Depression Integumentary: No Blood Disorders: No Adverse Reaction/Blood Tranf: No (RUMA DELGADO) Family Medical History Adopted Diabetes mellitus (Runs in biological family) Drug abuse (Biological mother) FH: breast cancer (Female side of family. Patient is adopted) FH: mental illness (Biological mother) FHx: heart disease (biological grandmother) No Pertinent Family Hx (RUMA DELGADO) Physical Exam Vital Signs Vital Signs - First Documented 05/22/23 05/22/23 21:38 22:00 Temp 36.4 Pulse 72 Resp 16 B/P (MAP) 113/78 (90) Pulse Ox 99 O2 Delivery Room Air ([place] DO) Height, Weight, BMI Height: 5'6.00" Weight: 125lbs. 10.0oz. 56.179791bx; 21.00 BMI Method:Stated General Appearance: WD/WN, no apparent distress Eyes: bilateral eye normal inspection, bilateral eye PERRL, bilateral eye EOMI Ears: bilateral ear auricle normal, bilateral ear canal normal, bilateral ear TM normal, bilateral ear bleeding Nose: normal inspection Mouth/Throat: other (Bottom right and left lower molars with mild decay gum swelling. No obvious abscess. Oropharynx patent without erythema, swelling, exudate. Mild swelling to the left lower jaw. No parotid or submandibular tenderness) Neck: non-tender, full range of motion, supple, normal inspection, other (No stridor. 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 She has no parotid or submandibular tenderness.. Very minimal facial swelling. No erythema. Tolerating secretions. No evidence of Bg angina. Oropharynx patent without evidence of strep. Vital signs stable. Will discharge with Augmentin receive a dose here. Alternate Tylenol and ibuprofen. Follow-up your dentist for further evaluation. She has no other complaints such as chest pain, short of breath, vomiting, diarrhea or flulike symptoms. Patient appears anxious. Need to follow-up with your dentist for further evaluation. If any worsening swelling, pain, unable to swallow to return back to ED (RUMA DELGADO) Impression Primary Impression: Dental abscess Disposition: HOME, SELF-CARE Condition: Stable Departure-Patient Inst. Decision time for Depature: 21:55 (RUMA DELGADO) Referrals: HIGINIO COX DO (PCP) Primary Care Physician NO,LOCAL PHYSICIAN (Family) Primary Care Physician Patient Instructions: Dental Pain (DC) Scripts Amoxicillin/Potassium Clav (Amox Tr-K Clv 875-125 mg Tab) 875 Mg-125 Mg Tablet 1 EACH PO BID for 7 Days, #14 TAB Prov: RUMA DELGADO 05/22/23 Work/School Note: Work Release Form Date Seen in the Emergency Department: May 22, 2023 Return to Work: May 25, 2023 ATTENDING PHYSICIAN NOTE: I WAS PHYSICALLY PRESENT ER PHYSICIAN, BUT I WAS NOT INVOLVED IN ANY DECISION MAKING OR ANY CARE OF THIS PATIENT, AND I AM NOT COLLABORATING PHYSICIAN. (LIS WHITMAN DO) RUMA DELGADO May 22, 2023 21:55 LIS WHITMAN DO May 22, 2023 22:27
[2023-05-22 22:00] VITALS: BP 113/78
== END 2023-05-22 22:00 | disposition home or self-care (01) ==
LOC: EDUNIT# 21:34 → ER 21:38
DX: K04.7 Periapical abscess without sinus (principal)
CPT/HCPCS: 99283

== ENCOUNTER 2023-05-27 00:51 | Emergency (ER) | payer OTHER ==
[~2023-05-27] VITALS: Ht 167.7 cm; Wt 56.7 kg
[~2023-05-27 00:51] MED LIST changes: +AMOX1TAB12 PO
[2023-05-27] MEDS ORDERED: NS IV 1000 ML 1,000 ML IV STA (02:08)
[2023-05-27 02:41] LABS: BASOPHILS % (AUTO) 0 % (0-10); EOSINOPHILS # (AUTO) 0.1 10^3/uL (0.0-0.3); EOSINOPHILS % (AUTO) 2 % (0-10); HEMATOCRIT 39 % (35-52); HEMOGLOBIN 13.3 g/dL (11.5-16.0); LYMPHOCYTES # (AUTO) 2.4 10^3/uL (1.0-4.0); LYMPHOCYTES % (AUTO) 38 % (12-44); MEAN CORPUSCULAR HEMOGLOBIN 29 pg (25-34); MEAN CORPUSCULAR HGB CONC 34 g/dL (32-36); MEAN CORPUSCULAR VOLUME 87 fL (80-99); MEAN PLATELET VOLUME 9.6 fL (9.0-12.2); MONOCYTES # (AUTO) 0.5 10^3/uL (0.0-1.0); MONOCYTES % (AUTO) 8 % (0-12); NEUTROPHILS # (AUTO) 3.3 10^3/uL (1.8-7.8); NEUTROPHILS % (AUTO) 52 % (42-75); PLATELET COUNT 169 10^3/uL (130-400); WHITE BLOOD COUNT 6.3 10^3/uL (4.3-11.0)
--- NOTE | 2023-05-27 02:44 | ED General ---
General Chief Complaint: Abdominal/GI Problems Stated Complaint: HEADACHE/NECK PAIN/ABD PAIN/SHAKEY/SORE THROAT Nursing Triage Note: PT A&OX3; PT AMBULATES TO ROOM WITHOUT ASSISTANCE OF ER STAFF; PT REPORTS THAT SHE WAS SEEN PREVIOUSLY AND PRESCRIBED AN ANTIBIOTIC FOR DENTAL PAIN; PT REPORTS THAT AFTER BEGINNING ANTIBIOTIC SHE HAS HAD SOME GENERALIZED MALAISE, INTERMITTENT ABD PAIN, BODY ACHES AND NECK/BACK PAIN Source of Information: Patient Exam Limitations: No Limitations History of Present Illness Date Seen by Provider: May 27, 2023 Time Seen by Provider: 01:55 Initial Comments Here with complaints of lower abdominal pain and malaise with body aches, headache and generally just not feeling well. She was seen a few days ago for tooth infection to the lower teeth posterior and started on Augmentin. 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 She denies nausea or vomiting. She does have some chest tightness but denies sore throat or runny nose or cough. States she feels like she is vibrating in her brain and stomach. She is drinking okay. She does complain of constipation which is chronic for her. She has taken Augmentin before without difficulty. Timing/Duration: 12-24 Hours Severity: Mild, Moderate Associated Systoms: No Cough; Headaches; No Nausea/Vomiting, No Shortness of Air Allergies and Home Medications Allergies Coded Allergies: petrolatum,white (Unverified Allergy, Mild, Rash, 03/19/16) Patient Home Medication List Home Medication List Reviewed: Yes Amoxicillin/Potassium Clav (Amox Tr-K Clv 875-125 mg Tab) 875 Mg-125 Mg Tablet, 1 EACH PO BID Prescribed by: CELINE SPENCER on 05/22/23 215 Cefdinir (Cefdinir) 300 Mg Capsule, 300 MG PO BID Prescribed by: CHRIS REESE on 12/24/16 1635 Diclofenac Sodium (Diclofenac Sodium) 50 Mg Tablet.dr, 50 MG PO Q6H PRN for PAIN Prescribed by: CHRIS REESE on 12/24/16 1635 Hydroxyzine HCl (Hydroxyzine HCl) 50 Mg Tablet, 50 MG PO TID Prescribed by: CASSANDRA DEVLIN MD on 02/05/23 0323 Ondansetron (Ondansetron Odt) 8 Mg Tab.rapdis, 8 MG PO Q6H PRN for NAUSEA Prescribed by: KRISTEN QUINTANA on 10/31/162316 Promethazine HCl (Promethazine HCl) 12.5 Mg Tablet, 12.5 MG PO Q6H PRN for NAUSEA/VOMITING Prescribed by: SUSAN COTTO on 11/02/162249 Tramadol HCl (Tramadol HCl) 50 Mg Tablet, 50 MG PO Q6H PRN for PAIN Prescribed by: KRISTEN QUINTANA on 10/31/162316 Review of Systems Review of Systems Constitutional: see HPI, malaise EENTM: mouth pain; No nose congestion Respiratory: No short of breath Cardiovascular: see HPI Gastrointestinal: abdominal pain, constipation; No nausea, No vomiting Genitourinary: no symptoms reported Musculoskeletal: muscle pain Psychiatric/Neurological: Headache, Other (Fatigue) Past Pcngfjy-Rhiwpz-Jktqmv Hx Patient Social History Tobacco Use?: No Use of E-Cig and/or Vaping dev: Yes E-Cig or Vaping type used: Nicotine Use of E-Cig and/or Vaping James: Current Everyday User Substance use?: Yes Additional substance use comme: DELTA 8 Substance frequency: Couple times a week Alcohol Use?: No Pt feels they are or have been: No Immunizations Up To Date Tetanus Booster (TDap): Less than 5yrs Influenza Vaccine Up-to-Date: No; Not Current First/Initial COVID19 Vaccinat: 2020 Second COVID19 Vaccination [place]: 2020 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: [employer] Seasonal Allergies Seasonal Allergies: Yes Past Medical History Surgeries: Yes (WISDOM TEETH, L ANKLE) Adenoidectomy, Orthopedic, Tonsillectomy Respiratory: Yes (CHILDHOOD ASTHMA) Asthma Cardiac: No Neurological: No Last Menstrual Period: May 13, 2023 Reproductive Disorders: No Sexually Transmitted Disease: No HIV/AIDS: No Bladder Infection Gastrointestinal: No Musculoskeletal: No Endocrine: No Cancer: No Psychosocial: Yes Anxiety, Depression Integumentary: No Blood Disorders: No Adverse Reaction/Blood Tranf: No Family Medical History Reviewed Nursing Family Hx Adopted Diabetes mellitus (Runs in biological family) Drug abuse (Biological mother) FH: breast cancer (Female side of family. Patient is adopted) FH: mental illness (Biological mother) FHx: heart disease (biological grandmother) Physical Exam Vital Signs Vital Signs - First Documented 05/27/23 01:20 Temp 36.7 Pulse 93 Resp 16 B/P (MAP) 126/90 (102) Pulse Ox 100 O2 Delivery Room Air Capillary Refill : Less Than 3 Seconds Height, Weight, BMI Height: 5'6.00" Weight: 125lbs. 10.0oz. 56.958800zj; 20.00 BMI Method:Stated General Appearance: No Apparent Distress, Thin HEENT: PERRL/EOMI, Pharynx Normal, Other (No significant dental abscess or significant erythema to the gums noted.) Neck: Non Tender, Supple Respiratory: Lungs Clear, Normal Breath Sounds Cardiovascular: Regular Rate, Rhythm, No Murmur Gastrointestinal: Non Tender, Soft Back: Normal Inspection, No CVA Tenderness, No Vertebral Tenderness Extremity: Normal Range of Motion, Non Tender Neurologic/Psychiatric: Alert, Oriented x3 Skin: Normal Color, Warm/Dry Procedures/Interventions Suture Size: 5-0 Progress/Results/Core Measures Suspected Sepsis SIRS Temperature: Pulse: 93 Respiratory Rate: 16 Laboratory Tests 05/27/23 02:30: White Blood Count 6.3 Blood Pressure 126 /90 Mean: 102 Laboratory Tests 05/27/23 02:30: Creatinine 0.70, Platelet Count 169, Total Bilirubin 0.7 Results/Orders Lab Results Laboratory Tests Test 05/27/23 02:30 Range/Units White Blood Count 6.3 4.3-11.0 10^3/uL Red Blood Count 4.52 3.80-5.11 10^6/uL Hemoglobin 13.3 11.5-16.0 g/dL Hematocrit 39 35-52 % Mean Corpuscular Volume 87 80-99 fL Mean Corpuscular Hemoglobin 29 25-34 pg Mean Corpuscular Hemoglobin Concent 34 32-36 g/dL Red Cell Distribution Width 12.2 10.0-14.5 % Platelet Count 169 130-400 10^3/uL Mean Platelet Volume 9.6 9.0-12.2 fL Immature Granulocyte % (Auto) 0 % Neutrophils (%) (Auto) 52 42-75 % Lymphocytes (%) (Auto) 38 12-44 % Monocytes (%) (Auto) 8 0-12 % Eosinophils (%) (Auto) 2 0-10 % Basophils (%) (Auto) 0 0-10 % Neutrophils # (Auto) 3.3 1.8-7.8 10^3/uL Lymphocytes # (Auto) 2.4 1.0-4.0 10^3/uL Monocytes # (Auto) 0.5 0.0-1.0 10^3/uL Eosinophils # (Auto) 0.1 0.0-0.3 10^3/uL Basophils # (Auto) 0.0 0.0-0.1 10^3/uL Immature Granulocyte # (Auto) 0.0 0.0-0.1 10^3/uL Sodium Level 139 135-145 MMOL/L Potassium Level 3.6 3.6-5.0 MMOL/L Chloride Level 106 98-107 MMOL/L Carbon Dioxide Level 23 21-32 MMOL/L Anion Gap 10 5-14 MMOL/L Blood Urea Nitrogen 7 7-18 MG/DL Creatinine 0.70 0.60-1.30 MG/DL Estimat Glomerular Filtration Rate 123 BUN/Creatinine Ratio 10 Glucose Level 90 70-105 MG/DL Calcium Level 9.3 8.5-10.1 MG/DL Corrected Calcium 9.0 8.5-10.1 MG/DL Total Bilirubin 0.7 0.1-1.0 MG/DL Aspartate Amino Transf (AST/SGOT) 16 5-34 U/L Alanine Aminotransferase (ALT/SGPT) 9 0-55 U/L Alkaline Phosphatase 57 40-136 U/L C-Reactive Protein High Sensitivity 0.01 0.00-0.50 MG/DL Total Protein 7.3 6.4-8.2 GM/DL Albumin 4.4 3.2-4.5 GM/DL Influenza Type A (RT-PCR) Not Detected Not Detecte Influenza Type B (RT-PCR) Not Detected Not Detecte SARS-CoV-2 RNA (RT-PCR) Not Detected Not Detecte My Orders Orders - LUBNA REYES MD Ns Iv 1000 Ml (Ns Iv 1000 Ml) (05/27/23 02:08) Ed Iv/Invasive Line Start (05/27/23 02:08) Cbc And Automated Diff (05/27/23 02:08) Comprehensive Metabolic Panel (05/27/23 02:08) Hs C Reactive Protein (05/27/23 02:08) Influenza A And B By Pcr (05/27/23 02:08) Covid 19 Inhouse Test (05/27/23 02:08) Vital Signs/I&O 05/27/23 01:20 Temp 36.7 Pulse 93 Resp 16 B/P (MAP) 126/90 (102) Pulse Ox 100 O2 Delivery Room Air Capillary Refill : Less Than 3 Seconds Blood Pressure Mean: 102 Progress Note : Progress Note Seen and evaluated. IV, labs including CBC, CMP and CRP ordered. Normal saline 1 L bolus ordered. We will check COVID and flu. Monitor patient. Differential diagnosis includes medication adverse effect, electrolyte abnorm ality, dehydration, COVID or influenza 0243: CBC is normal. Pending remaining labs. 0318: CMP is grossly normal and CRP is negative. Overall she is feeling much better. We will switch her antibiotic to just straight amoxicillin 3 times daily for 5 days and stop Augmentin. Discharged home with return precautions. Patient verbalized understanding of instructions and agreement with plan. Departure Impression Primary Impression: Adverse effects of medication Qualified Codes: T50.905A - Adverse effect of unspecified drugs, medicaments and biological substances, initial encounter Disposition: HOME, SELF-CARE Condition: Improved Departure-Patient Inst. Decision time for Depature: 03:19 Referrals: HIGINIO COX DO (PCP/Family) Primary Care Physician Patient Instructions: MEDICATION REACTION Add. Discharge Instructions: All discharge instructions reviewed with patient and/or family. Voiced understan jacklyn. You will stop taking the Augmentin and start amoxicillin 3 times a day. A prescription was sent to [facility]. Drink plenty of fluids and get plenty of rest. Return for worse pain, fever, vomiting, weakness, breathing problems or other concerns as needed. Scripts Amoxicillin (Amoxicillin) 500 Mg Capsule 500 MG PO TID for 5 Days, #15 CAP 0 Refills Prov: LUBNA REYES MD 05/27/23 LUBNA REYES MD May 27, 2023 02:43
[2023-05-27 02:50] LABS: ALBUMIN 4.4 GM/DL (3.2-4.5); POTASSIUM 3.6 MMOL/L (3.6-5.0)
[2023-05-27 02:51] LABS: CALCIUM 9.3 MG/DL (8.5-10.1)
[2023-05-27 02:53] LABS: TOTAL PROTEIN 7.3 GM/DL (6.4-8.2)
[2023-05-27 02:54] LABS: BILIRUBIN,TOTAL 0.7 MG/DL (0.1-1.0)
[2023-05-27 02:57] LABS: CREATININE SERUM 0.7 MG/DL (0.60-1.30)
[2023-05-27] MEDS ORDERED: AMOX500C2 PO (03:21)
[2023-05-27 03:32] VITALS: BP 118/83
== END 2023-05-27 03:32 | disposition home or self-care (01) ==
LOC: EDUNIT# 00:51 → ER 00:54
DX: R51.9 Headache, unspecified (principal); T36.1X5A Adverse effect of cephalosporins and other beta-lactam antibiotics, initial encounter; K08.89 Other specified disorders of teeth and supporting structures; F17.290 Nicotine dependence, other tobacco product, uncomplicated; Z20.822 Contact with and (suspected) exposure to COVID-19
CPT/HCPCS: 36415; 80053; 85025; 86141; 87636